=== PATIENT | male | born 1995 | race Two or more races ===

== ENCOUNTER 2021-04-04 20:24 | Emergency (ER) | payer SELFPAY ==
[2021-04-04] MEDS ORDERED: GI Cocktail Oral Solution 30 ML PO ONE (21:10)
[2021-04-04] MEDS ORDERED: Pantoprazole 40 MG Tab.CR PO ONE (21:11)
[2021-04-04 21:34] LABS: CHLORIDE,CL 102 mmol/L (98-107); SODIUM,NA 137 mmol/L (136-145)
[2021-04-04 21:37] LABS: ANION GAP 9.7 mmol/L (5-15)
--- NOTE | 2021-04-05 04:37 | EDM.PDOC ---
ED HPI GENERAL MEDICAL PROBLEM - General Chief Complaint: Gastrointestinal Problem Stated Complaint: THROWING UP BLOOD Time Seen by Provider: 04/04/21 20:45 Source of Information: Reports: Patient History Limitations: Reports: No Limitations - History of Present Illness INITIAL COMMENTS - FREE TEXT/NARRATIVE: Pt. presents to ER with complaints of dark stools and vomit. Pt. has a longstanding history of having this intermittently for years, but has never been worked up for it. Pt. states that the symptoms start when he has been drinking heavily. Pt. states that he drinks almost daily. He states that he is a binge drinker, and is not physically dependent on alcohol. Pt. denies any lightheadedness or shortness of breath. No substernal chest pain. He does have some discomfort in the upper abdomen/epigastric area. Pt. states that he has problems with burning sensation in his throat sometimes as well, associated with consumption of spicy food especially. He has a strong family history of GI problems, including GERD. Pt. presents to ER with pictures of both the melena and the hematemesis. Onset Date: 04/04/21 Location: Reports: Abdomen upper abdomen/epigastric Pain Score (Numeric/FACES): 1 - Related Data Allergies Allergy/AdvReac Type Severity Reaction Status Date / Time Penicillins Allergy Other Verified 04/04/21 20:56 Home Meds: Home Meds . [No Known Home Meds] 04/04/21 [History] Past Medical History Gastrointestinal History: Reports: Other (See Below) Other Gastrointestinal History: Heartburn, Black stools Social & Family History - Tobacco Use Tobacco Use Status *Q: Unknown Ever Used Tobacco ED ROS GENERAL - Review of Systems Review Of Systems: Comprehensive ROS is negative, except as noted in HPI. GI/Abdominal: Reports: Black Stool, Hematemesis, Melena ED EXAM, GENERAL - Physical Exam Exam: See Below Exam Limited By: No Limitations General Appearance: Alert, WD/WN, No Apparent Distress Respiratory/Chest: No Respiratory Distress, Lungs Clear, Normal Breath Sounds, No Accessory Muscle Use, Chest Non-Tender Cardiovascular: Normal Peripheral Pulses, Regular Rate, Rhythm, No Edema, No Gallop, No JVD GI/Abdominal: Soft, Non-Tender, No Distention, No Mass (Male) Exam: Deferred Rectal (Males) Exam: Deferred Extremities: Normal Inspection, Normal Range of Motion, Non-Tender, No Pedal Edema, Normal Capillary Refill Neurological: Alert, Oriented, CN II-XII Intact, Normal Cognition, Normal Gait, Normal Reflexes, No Motor/Sensory Deficits Psychiatric: Normal Affect, Normal Mood Skin Exam: Warm, Dry, Intact, Normal Color, No Rash Lymphatic: No Adenopathy Course - Vital Signs Last Recorded V/S: Last Vital Signs Temp 36.2 C 04/04/21 20:24 Pulse 76 04/04/21 22:00 Resp 16 04/04/21 22:00 BP 130/84 04/04/21 22:00 Pulse Ox 98 04/04/21 20:24 - Orders/Labs/Meds Labs: Laboratory Tests 04/04/21 04/04/21 04/04/21 Range/Units 21:09 21:09 21:09 WBC 16.0 H (4.0-10.0) x10^3/uL RBC 5.04 (4.5-6.0) x10^6/uL Hgb 15.2 (14.0-18.0) g/dL Hct 43.2 (40.0-52.0) % MCV 85.7 (78.0-93.0) fL MCH 30.2 (26.0-32.0) pg MCHC 35.2 (32.0-36.0) g/dL RDW Coeff of Ann-Marie 13.2 (10.0-15.0) % Plt Count 336 (130-400) x10^3/uL Neut % (Auto) 77.9 (50.0-80.0) % Lymph % (Auto) 9.3 L (25.0-50.0) % Mcculloch % (Auto) 10.4 (2.0-11.0) % Eos % (Auto) 2.1 (0.0-4.0) % Baso % (Auto) 0.3 (0.2-1.2) % PT 11.0 (9.9-12.5) SEC INR 1.0 L (2.0-3.5) Sodium 137 (136-145) mmol/L Potassium 4.7 (3.5-5.1) mmol/L Chloride 102 (98-107) mmol/L Carbon Dioxide 30 (21-32) mmol/L Anion Gap 9.7 (5-15) mmol/L BUN 12 (7-18) mg/dL Creatinine 1.0 (0.70-1.30) mg/dL Est Cr Clr Drug Dosing TNP Estimated GFR (MDRD) > 60 Glucose 98 (70-99) mg/dL Calcium 9.1 (8.5-10.1) mg/dL Corrected Calcium 9.4 (8.5-10.1) mg/dL Total Bilirubin 1.7 H (0.2-1.0) mg/dL AST 25 (15-37) U/L ALT 52 (16-63) U/L Alkaline Phosphatase 96 (46-116) U/L Total Protein 7.5 (6.4-8.2) g/dL Albumin 3.6 (3.4-5.0) g/dL Globulin 3.9 Albumin/Globulin Ratio 0.92 Meds: Medications Discontinued Medications Generic Name Dose Route Start Last Admin Trade Name Freq PRN Reason Stop Dose Admin Al Hydroxide/Mg Hydroxide 30 ml 04/04/21 21:10 04/04/21 21:31 Gi Cocktail Oral Solution 30 Ml PO 04/04/21 21:11 30 ml ONETIME ONE Administration Pantoprazole Sodium 40 mg 04/04/21 21:11 04/04/21 21:30 Pantoprazole 40 Mg Tab.Cr PO 04/04/21 21:12 40 mg ONETIME ONE Administration Departure - Departure Time of Disposition: 22:00 Disposition: Home, Self-Care 01 Clinical Impression: Gastritis - Discharge Information Instructions: Gastritis, Adult, [id number], Pantoprazole tablets, Gastroesophageal Reflux Disease, Adult, [id number] Referrals: PCP,None [Primary Care Provider] - Forms: ED Department Discharge Additional Instructions: Protonix 40mg 1 cap daily Abstain from consuming alcohol, at least for the time being Return to ER if you are still having symptoms after 10-14 days. I suggest follow-up in clinic in approx. a month, since this has been a problem for so long. Return also if you start vomiting a lot of blood, feel lightheaded, or short of breath. Sepsis Event Note (ED) - Evaluation Sepsis Screening Result: No Definite Risk - Focused Exam Vital Signs: Vital Signs Temp Pulse Resp BP Pulse Ox 04/04/21 22:00 76 16 130/84 04/04/21 20:24 36.2 C 86 16 143/111 H 98 - Problem List Review Problem List Initiated/Reviewed/Updated: Yes - Assessment/Plan Plan: Protonix 40mg 1 cap daily Abstain from consuming alcohol, at least for the time being Return to ER if you are still having symptoms after 10-14 days. I suggest follow-up in clinic in approx. a month, since this has been a problem for so long. Return also if you start vomiting a lot of blood, feel lightheaded, or short of breath.
== END 2021-04-04 22:10 | disposition home or self-care (01) ==
LOC: VM.ED 20:24
DX: K29.70 Gastritis, unspecified, without bleeding (principal); Z88.0 Allergy status to penicillin
CPT/HCPCS: 36415; 80053; 85025; 85610; 99283; 99284; A9270-GY